=== PATIENT | female | born 1950 | race Caucasian/White ===

== ENCOUNTER 2016-08-25 19:26 | Emergency (ER) | payer OTHER, MEDICARE ==
[~2016-08-25] VITALS: Ht 157.5 cm; Wt 90.7 kg
[~2016-08-25 19:26] MED LIST: VICODIN5-300 PO; ZOFRAN 4 MG TABL4 MG PO
--- NOTE | 2016-08-25 20:04 | ED NOSE COMPLAINT ---
History of Present Illness General Chief Complaint: Epistaxis/Nasal Foreign Body Stated Complaint: EPISTAXIS, HIGH BP Source: patient Exam Limitations: no limitations Vital Signs & Intake/Output Vital Signs & Intake/Output Vital Signs Date Time Temp Pulse Resp B/P B/P Pulse O2 O2 Flow FiO2 Mean Ox Delivery Rate 08/26 2015 60 22 139/73 98 08/25 1931 97.7 52 20 174/92 96 Room Air Allergies Coded Allergies: Sulfa (Sulfonamide Antibiotics) (Intermediate, HIVES 08/25/16) Reconcile Medications Aspirin (Ecotrin*) 81 MG TABLET. 1 TAB PO DAILY HEART (Reported) [BLOOD PRESSURE] 1 TAB PO DAILY HTN (Reported) Triage Note: TRIAGE: PT TO ER C/C EPISTAXIS, ONSET 10:30 AM- 11:00 AM AND RESTARTED 17:00-18:00. THINKS IT MAY HAVE STOPPED BUT HAS GAUZE INSERTED IN L NARES AT TRIAGE. TAKES 325 MG ASA DAILY. B/P WAS 170/110 AT HOME AND 174/92 AT TRIAGE. USUAL B/P 140'S/80'S. COMPLAINS OF H/A PAIN, 5/10, DULL IN NATURE, ONSET WITH EPISTAXIS THIS MORNING RESOLVED WITH RESOLUTION OF EPISTAXIS AND RETURNED WHEN EPISTAXIS RETURNED THIS EVENING. DENIES FEELING DIZZY OR LIGHTHEADED. Triage Nurses Notes Reviewed? yes Onset: Abrupt Duration: hour(s):, intermittent, resolved prior to arrival Timing: recent history Severity: mild No Modifying Factors: none HPI: 66-year-old female comes into the emergency room for further evaluation of 2 nosebleeds that occurred earlier today. One in the morning. One in the afternoon. Both have since resolved. She spoke with ear nose and throat doctor who told her to come to the hospital for further evaluation. There is been no recurrent bleeding. She denies any pain or symptoms currently. Denies any other associated symptoms. (NIKOLAI ADAMS) Past History Travel History Traveled to [place] past 21 day No Medical History Any Pertinent Medical History? see below for history Neurological: NONE EENT: NONE Cardiovascular: hyperlipidemia Respiratory: NONE Gastrointestinal: BOWEL OBSTRUCTION Hepatic: cholelithiasis Renal: NONE Musculoskeletal: NONE Psychiatric: anxiety, depression Endocrine: hypothyroidism Blood Disorders: NONE Cancer(s): NONE CHAIR CANER/Reproductive: NONE Surgical History Surgical History: non-contributory Psychosocial History Who do you live with Mother What is your primary language Iranian Tobacco Use: Quit >30 days ago ETOH Use: occasional use Illicit Drug Use: denies illicit drug use Family History Hx Contributory? No (NIKOLAI ADAMS) Review of Systems Review of Systems Constitutional: Reports: no symptoms. EENTM: Reports: see HPI. Respiratory: Reports: no symptoms. Cardiovascular: Reports: no symptoms. GI: Reports: no symptoms. Genitourinary: Reports: no symptoms. Musculoskeletal: Reports: no symptoms. Skin: Reports: no symptoms. Neurological/Psychological: Reports: no symptoms. Hematologic/Endocrine: Reports: no symptoms. Immunologic/Allergic: Reports: no symptoms. All Other Systems: Reviewed and Negative (NIKOLAI ADAMS) Physical Exam Physical Exam General Appearance: well developed/nourished, mild distress Head: atraumatic Eyes: Bilateral: normal appearance. Nose: normal inspection Mouth/Throat: normal mouth inspection, blood in posterior pharynx small amount Neck: normal inspection, supple Cardiovascular/Respiratory: no respiratory distress Back: normal inspection Neurologic/Psych: awake, alert, oriented x 3, normal mood/affect Skin: intact, normal color, warm/dry (NIKOLAI ADAMS) Progress Differential Diagnoses I considered the following diagnoses in my evaluation of the patient: Epistaxis , thrombocytopenia, hypertension, Plan of Care: 08/25/2016 8:35:40 PM Patient has no bleeding here in the emergency room and is completely asymptomatic. Follow-up with primary care doctor. Return if any concerns. Follow-up with ear nose and throat doctor. Initial ED EKG: none (NIKOLAI ADAMS) Departure Departure Disposition: HOME OR SELF CARE Condition: Stable Clinical Impression Primary Impression: Epistaxis Referrals: RICO CHISHOLM MD (PCP/Family) Additional Instructions: Follow-up with ear nose and throat doctor on Saturday. Return if any recurrent bleeding or any other concerns worsening symptoms. Please go over all results of today's visit with your primary care doctor. Contact your primary care doctor to let them know you were here in the emergency room. There may be nonspecific findings which may not be related to your visit today here in the emergency room but may require further evaluation and chronic monitoring by your primary care doctor. If you had a laceration today the chance of foreign body always remains. You should follow-up with your primary care doctor for recheck in 3-5 days for a wound check. If you had an x-ray done there is a chance that a fracture could have been missed on initial read and you should follow-up with your primary care doctor for repeat x-rays if symptoms persist. If your blood pressure was elevated here in the emergency room please have rechecked by her primary care doctor within the next 48 hours by your primary care doctor. If you were prescribed a narcotic here in the emergency room or any type of controlled substances you're not allowed to drive while taking this medication or operate any type of heavy machinery. Narcotics can make you feel lightheaded dizziness nausea and can cause constipation. You may need to orange picking supervisor a stool softener. Thank you for choosing [facility] emergency room. Please return to the emergency room immediately if you have any other concerns worsening of symptoms. Departure Forms: Customer Survey General Discharge Information (NIKOLAI ADAMS) PA/STRATEGIC INSIGHTS LEAD Co-Sign Statement Statement: ED Attending supervision documentation- [X] I saw and evaluated the patient. I have also reviewed all the pertinent lab results and diagnostic results. I agree with the findings and the plan of care as documented in the PA's/STRATEGIC INSIGHTS LEAD's documentation. [X] I have reviewed the ED Record and agree with the PA's/STRATEGIC INSIGHTS LEAD's documentation. [] Additions or exceptions (if any) to the PAs/STRATEGIC INSIGHTS LEAD's note and plan are summarized below: [] (FRANCISCO JAVIER COLON,DIANA Olivares)
[2016-08-25] MEDS ORDERED: ASPIRIN EC81 M1 PO (20:14)
[2016-08-25] MEDS ORDERED: BLOOD PRESSURE PO (20:15)
[2016-08-25 20:16] VITALS: BP 139/73
== END 2016-08-25 20:17 ==
LOC: ERH 19:26
DX: R04.0 Epistaxis (principal)